=== PATIENT | male | born 1995 | race Caucasian/White ===

== ENCOUNTER → 2019-04-15 | Outpatient (CLI) | payer OTHER ==
[~2019-04-15] MED LIST: ALBU90I INH; Bactroban22 GM TOP; CEPH250SUA; CEPH500 PO; CLIN150 PO; CODACE30; CODACEE120 PO; DOXY100 PO; Naprosyn500 MG PO; PROP10 PO; RXCLIN PO; SUMA25 PO; TYLENOL/MOTRIN PRN
== END | disposition home or self-care (01) ==
LOC: LAB 19:35 → LAB SHORT 19:35
DX: L03.113 Cellulitis of right upper limb (principal)
CPT/HCPCS: 87070; 87205

== ENCOUNTER 2021-05-03 21:46 | Observation (INO) | payer OTHER ==
[~2021-05-03] VITALS: Ht 177.8 cm; Wt 75.0 kg
[2021-05-03 22:06] LABS: BASOPHILS ABSOLUTE AUTO 0.06 K/mm3 (0.00-0.23); BASOPHILS PERCENT AUTO 1 % (0-2); EOSINOPHILS ABSOLUTE AUTO 0.08 K/mm3 (0.00-0.68); EOSINOPHILS PERCENT AUTO 1 % (0-6); Hematocrit 46.6 % (37.0-53.0); Hemoglobin 15.3 g/dL (13.5-17.5); IMMATURE GRAN ABSOLUTE AUTO 0.06 K/mm3 (0.00-0.10); IMMATURE GRAN PERCENT AUTO 1 % (0-1); LYMPHOCYTES ABSOLUTE AUTO 2.62 K/mm3 (0.84-5.20); LYMPHOCYTES PERCENT AUTO 34 % (21-46); MONOCYTES ABSOLUTE AUTO 0.63 K/mm3 (0.16-1.47); MONOCYTES PERCENT AUTO 8 % (4-13); Mean Corpuscular HGB 28.8 pg (26.0-34.0); Mean Corpuscular HGB Conc 32.8 g/dL (31.5-36.5); Mean Corpuscular Volume 88 fL (80-100); Mean Platelet Volume 9.3 fL (9.1-12.4); NEUTROPHILS ABSOLUTE AUTO 4.34 K/mm3 (1.96-9.15); NEUTROPHILS PERCENT AUTO 56 % (41-73); Platelet Count 349 K/mm3 (150-400); RDW Coefficient Variation 12.2 % (11.7-14.2); RDW Standard Deviation 39.4 fL (35.1-46.3); Red Blood Cell Count 5.32 M/mm3 (4.30-5.90); White Blood Cell Count 7.79 K/mm3 (4.00-11.30)
[2021-05-03 22:15] LABS: Alanine Aminotransfer (ALT/SGP 164 U/L (12-78); Albumin, Blood 4.3 g/dL (3.4-5.0); Albumin/Globulin Ratio 1.1 (0.8-1.8); Alk Phos 85 U/L (50-136); Anion Gap 7 mmol/L (6-16); Aspartate Aminotrans (AST/SGOT 154 U/L (12-37); Bilirubin, Total 0.3 mg/dL (0.1-1.0); Blood Urea Nitrogen 15 mg/dL (8-24); CO2, Blood 28 mmol/L (21-32); Calcium, Blood 8.7 mg/dL (8.5-10.1); Chloride, Blood 110 mmol/L (98-108); Creatinine, Blood 1.25 mg/dL (0.60-1.20); Ethanol (Alcohol), Blood, Med 273 mg/dL; Glomerular Filtration Rate >60 (60-); Glucose, Blood 112 mg/dL (70-99); Sodium, Blood 145 mmol/L (136-145); Total Protein, Blood 8.3 g/dL (6.4-8.2)
--- NOTE | 2021-05-04 01:51 | NUR ---
PT ARRIVED TO SURGICAL UNIT ROOM 224 AT 0020 VIA STRETCHER. PT SLIDES ON THE OTHER BED INDEPENDENTLY. APPEARS TO BE WEAK BUT TOLERATES MOVEMENT. AOX4. SIGNIFICANT OTHER AT BEDSIDE. PT DENIES PAIN AND NAUSEA. ACCORDING TO REPORT PT WAS MEDICATED FOR PAIN AND NAUSEA PRIOR TO ARRIVAL. PT APPEARS TO HAVE BRUISING AND ABRASION FROM HEAD TO BLE. REPORTS SOME NUMBNESS AND TINGLING ON BLE BUT ABLE TO MOVE ALL EXTREMITIES. PT DENIES CHEST PAIN. C/O MILD SOB. PT FEELS ANXIOUS, EXPLAINED THE REASON WHY HE IS BEING ADMITTED AND THE PLAN. PT WAS RECEPTIVE. IV ON BILATERAL ARMS, PATENT AND FLUSHED. VOIDS IN THE BATHROOM WITHOUT DIFFICULTY. REORIENT IN ROOM. LUNGS SOUNDS ARE CLEAR. BT PRESENT. CALL LIGHT WITHIN REACH. WILL CONTINUE TO MONITOR PT.
--- NOTE | 2021-05-04 04:47 | NUR ---
SHIFT SUMMARY ADMITTED FOR EDEMA ON ABD AORTA. PT DENIES PAIN BUT REPORTS NAUSEA. PT VOMITED X3 SINCE 3AM, 400 EMESIS OUTPUT AND 1 UNMEASURED (SMALL AMT). CONTACTED DR. MUNOZ, ORDER FOR ZOFRAN 4MG WAS ADMINSTERED WITH MILD RELIEF. LR AT 150 MLS/HR INFUSING ON R AC. L FOREARM DRESSING WAS NOT INTACT, REINFORCED. IV STILL PATENTS AND FLUSHED. VSS. PT REPORT SOME DIZZINESS AFTER VOMITING. PT DENIES CHEST PAIN AND HEADACHE. PT VOIDS WITHOUT DIFFICULTY, AMBULATES W/ 1 SBA. PT HAS SKIN ABRASION AND BRUISING ALL OVER. PT ON CLEAR LIQ DIET. WILL CONTINUE TO MONITOR. CALL LIGHT WITHIN REACH. WILL PROVIDE REPORT TO ONCOMING NURSE.
--- NOTE | 2021-05-04 06:02 | NUR ---
06:00 PT VOMITING. EMESIS AT 200ML, SLIGHTLY YELLOW IN COLOR.
[2021-05-04] MEDS ORDERED: ACET325 PO (09:21)
[2021-05-04] MEDS ORDERED: IBUP600 PO (09:22)
--- NOTE | 2021-05-04 10:05 | NUR ---
PT. ALERT AND ORIENTED X 4. C/O NAUSEA AND HAD 300CC EMESIS, APPEARS TO BE WATER. C/O GENERALIZED PAIN AND BACK PAIN, REQUESTING PAIN MEDICATION, MORPHINE GIVEN. DENIES CHEST PAIN, DENIES SHORTNESS OF BREATH. LUNGS ARE CLEAR TO AUSCULTATION, + BT'S. NOTED SLIGHT PUFFINESS IN R HAND, STATES IT HURTS A LITTLE, CAN MAKE A FIST BUT NOT A TIGHT FIST. FAMILY AT BEDSIDE. VERBALIZE RELIEF OF PAIN AND NAUSEA WITH MEDICINE PER EMAR.
--- NOTE | 2021-05-04 15:00 | NUR ---
PT. DISCHARGED TO HOME. DC INSTRUCTIONS EXPLAINED AND COPY GIVEN TO PATIENT. GIRLFRIEND HERE TO TAKE PT. HOME. STATES GENERALIZED PAIN IS MANAGED WITH MOTRIN GIVEN EARLIER. NO FURTHER EMESIS, PATIENT TAKING PO AND HAS VOIDED. IV X 2 REMOVED WITH CANNULA TIPS INTACT. W/C TO EXIT WITH PERSONAL BELONGINGS.
== END 2021-05-04 15:01 | disposition home or self-care (01) ==
LOC: ER 21:46 → SURS 21:47 → ER 05-04 00:53 → SURS 05-04 00:53 → ER 05-04 09:02 → SURS 05-04 09:02
PROVIDERS: Student in an Organized Health Care Education/Training Program; ADMIT Surgery
DX: R10.9 Unspecified abdominal pain (principal); R07.9 Chest pain, unspecified; M54.2 Cervicalgia; S50.00XA Contusion of unspecified elbow, initial encounter; J45.909 Unspecified asthma, uncomplicated; F17.210 Nicotine dependence, cigarettes, uncomplicated; V89.2XXA Person injured in unspecified motor-vehicle accident, traffic, initial encounter
CPT/HCPCS: 36415; 70450; 71260; 72125; 73070; 74177; 76775; 80053; 83690; 85025; 86850; 86900; 86901; 90471; 90714; 93005; 93010; 96374-59; 96375; 96376; 99285-25; A9270; G0378; G0480; J2270; J2405; J7030; J7120; Q9967

== ENCOUNTER 2021-05-08 23:31 | Emergency (ER) | payer OTHER ==
[~2021-05-08] VITALS: Ht 182.9 cm; Wt 77.1 kg
[~2021-05-08 23:31] MED LIST changes: +ACET325 PO; +IBUP600 PO
[2021-05-09 00:40] LABS: BASOPHILS ABSOLUTE AUTO 0.05 K/mm3 (0.00-0.23); BASOPHILS PERCENT AUTO 1 % (0-2); EOSINOPHILS ABSOLUTE AUTO 0.33 K/mm3 (0.00-0.68); EOSINOPHILS PERCENT AUTO 5 % (0-6); Hematocrit 37.1 % (37.0-53.0); Hemoglobin 12.6 g/dL (13.5-17.5); IMMATURE GRAN ABSOLUTE AUTO 0.06 K/mm3 (0.00-0.10); IMMATURE GRAN PERCENT AUTO 1 % (0-1); LYMPHOCYTES ABSOLUTE AUTO 1.93 K/mm3 (0.84-5.20); LYMPHOCYTES PERCENT AUTO 27 % (21-46); MONOCYTES ABSOLUTE AUTO 1.05 K/mm3 (0.16-1.47); MONOCYTES PERCENT AUTO 15 % (4-13); Mean Corpuscular HGB 28.9 pg (26.0-34.0); Mean Corpuscular Volume 85 fL (80-100); Mean Platelet Volume 9.5 fL (9.1-12.4); NEUTROPHILS ABSOLUTE AUTO 3.68 K/mm3 (1.96-9.15); NEUTROPHILS PERCENT AUTO 52 % (41-73); Platelet Count 277 K/mm3 (150-400); RDW Standard Deviation 37.2 fL (35.1-46.3); Red Blood Cell Count 4.36 M/mm3 (4.30-5.90)
== END 2021-05-09 01:43 | disposition home or self-care (01) ==
LOC: ER 23:31
PROVIDERS: Emergency Medicine
DX: R07.2 Precordial pain (principal); S62.340A Nondisplaced fracture of base of second metacarpal bone, right hand, initial encounter for closed fracture; G43.909 Migraine, unspecified, not intractable, without status migrainosus; J45.909 Unspecified asthma, uncomplicated; Z88.0 Allergy status to penicillin; Z79.899 Other long term (current) drug therapy; V89.2XXA Person injured in unspecified motor-vehicle accident, traffic, initial encounter
CPT/HCPCS: 29125; 71260; 73130; 74177; 83690; 85025; 93005; 93010; 99285-25; Q9967

== ENCOUNTER → 2024-04-06 | Outpatient (CLI) | payer OTHER ==
[~2024-04-06] MED LIST changes: +HYDR1TAB94 PO
== END ==
LOC: LAB SHORT 17:35 → LAB 17:35
DX: Z51.89 Encounter for other specified aftercare (principal)
CPT/HCPCS: 87070; 87077; 87147; 87186; 87205